=== PATIENT | female | born 1940 | race Caucasian/White ===

== ENCOUNTER 2016-08-02 14:50 | Emergency (ER) | payer MEDICARE, OTHER ==
[~2016-08-02] VITALS: Ht 142.2 cm; Wt 63.5 kg
[2016-08-02] MEDS ORDERED: HYDROCODONE/APAP 5/325MG 1 EACH TABLET ONE (15:21)
[2016-08-02] MEDS ORDERED: HYDROCODONE/APAP 5/325MG 1 EACH TABLET PO ONE (15:30)
[2016-08-02 16:41] VITALS: BP 151/75
== END 2016-08-02 16:50 | disposition home or self-care (01) ==
LOC: ER 14:51
DX: S52.91XA Unspecified fracture of right forearm, initial encounter for closed fracture (principal); S80.02XA Contusion of left knee, initial encounter; S00.31XA Abrasion of nose, initial encounter; I25.2 Old myocardial infarction; E11.9 Type 2 diabetes mellitus without complications; I10 Essential (primary) hypertension; Z95.5 Presence of coronary angioplasty implant and graft
CPT/HCPCS: 29125; 70486; 71010; 73110; 73564; 93005; 99284; A4606; Z7610

== ENCOUNTER 2017-06-09 10:27 | Emergency (ER) | payer MEDICARE, OTHER ==
[~2017-06-09] VITALS: Ht 139.7 cm; Wt 59.0 kg
[2017-06-09 10:56] VITALS: BP 116/71
[2017-06-09] MEDS ORDERED: ACETAMINOPHEN 325 MG TABLET PO ONE (12:30)
[2017-06-09] MEDS ORDERED: LIDOCAINE VISCOUS 2% UD 15 ML UDC MM ONE (12:30)
[2017-06-09] MEDS ORDERED: LIDOCAINE VISCOUS 2% UD 15 ML UDC ONE (12:37)
[2017-06-09] MEDS ORDERED: ACETAMINOPHEN 325 MG TABLET ONE (12:38)
== END 2017-06-09 12:57 | disposition home or self-care (01) ==
LOC: ER 10:30
DX: J06.9 Acute upper respiratory infection, unspecified (principal); J02.9 Acute pharyngitis, unspecified; R13.10 Dysphagia, unspecified; I10 Essential (primary) hypertension; I25.2 Old myocardial infarction; E11.9 Type 2 diabetes mellitus without complications; F17.200 Nicotine dependence, unspecified, uncomplicated; Z95.5 Presence of coronary angioplasty implant and graft
CPT/HCPCS: 99283; A4606; Z7610

== ENCOUNTER 2018-05-27 21:02 | Inpatient (IN) | payer MEDICARE, OTHER ==
[~2018-05-27] VITALS: Ht 127 cm; Wt 62.7 kg
--- NOTE | 2018-05-27 21:10 | NUR ---
PT BIB DAUGHTER C/O NECK PAIN, BACK PAIN RADIATES TO SHOULDER, L SIDE CHEST PAIN, PT IS AAOX4 [id number] SPEAKING, NOT IN RESPIRATORY DISTRESS, V/S STABLE, KEPT RESTED AND COMFORTABLE, WILL CONTINUE TO MONITOR.
--- NOTE | 2018-05-27 21:20 | NUR ---
MS. MAHRE AT [facility] FOR EVAL, LABS DRAWNED, EKG DONE.
[2018-05-27] MEDS ORDERED: IV NS 0.9% 500 ML BAG IV ONE (21:30)
[2018-05-27 21:37] LABS: BASOPHILS # (AUTO) 0.1 /CMM (0.0-0.2); BASOPHILS % (AUTO) 0.9 % (0.0-2.0); EOSINOPHILS % (AUTO) 4.9 % (0.0-6.0); HEMATOCRIT 38 % (33-45); HEMOGLOBIN 12.3 g/dL (11.5-14.8); LYMPHOCYTES # (AUTO) 2.1 /CMM (0.8-4.8); LYMPHOCYTES % (AUTO) 23.8 % (20.0-44.0); MEAN CORPUSCULAR HGB CONC 32 g/dl (31.0-36.0); MEAN CORPUSCULAR VOLUME 86 fL (82-100); MONOCYTES # (AUTO) 0.9 /CMM (0.1-1.30); MONOCYTES % (AUTO) 9.5 % (2.0-12.0); NEUTROPHILS # (AUTO) 5.5 /CMM (1.8-8.9); NEUTROPHILS % (AUTO) 60.9 % (43.0-81.0); PLATELET COUNT (AUTO) 271 /CMM (150-450); RED BLOOD CELL COUNT(AUTO) 4.47 MIL/uL (4.0-5.2)
[2018-05-27 21:48] LABS: CALCIUM, SERUM 9.3 mg/dL (8.5-10.1); CARBON DIOXIDE 32 mmol/L (21-32); CHLORIDE 102 mmol/L (98-107); CREATININE 1.1 mg/dL (0.6-1.3); GLUCOSE 206 mg/dL (74-106); POTASSIUM 4.6 mmol/L (3.5-5.1); SODIUM SERUM 141 mmol/L (136-145); UREA NITROGEN, BLOOD 36 mg/dL (7-18)
[2018-05-27 21:54] LABS: ALANINE AMINOTRANSFERASE 24 U/L (12-78); ALBUMIN 3.5 g/dL (3.4-5.0); ALKALINE PHOSPHATASE 80 U/L (46-116); ASPARTATE AMINOTRANSFERASE 17 U/L (15-37); BILIRUBIN,TOTAL 0.2 mg/dL (0.2-1.0); TOTAL PROTEIN, SERUM 7.4 g/dL (6.4-8.2)
--- NOTE | 2018-05-27 22:04 | NUR ---
TECH AT BEDSIDE FOR CHEST XRAY.
[2018-05-27] MEDS ORDERED: NITROGLYCERIN 0.4 MG/TAB BOTTLE SL ONE (22:30)
[2018-05-27] MEDS ORDERED: ASPIRIN 325 MG TABLET PO ONE (22:30)
[2018-05-27] MEDS ORDERED: ASPIRIN 325 MG TABLET ONE (22:48)
[2018-05-27] MEDS ORDERED: NITROGLYCERIN 0.4 MG/TAB BOTTLE ONE (22:48)
[2018-05-27] MEDS ORDERED: NITROGLYCERIN PACKET 1 GM PACKET ONE (23:03)
--- NOTE | 2018-05-27 23:03 | NUR ---
REPORT GIVEN TO DON LOPEZ FOR CHANTELL, PT IS AAOX4, NOT IN RESPIRATORY DISTRESS, V/S STABLE.
--- NOTE | 2018-05-27 23:10 | NUR ---
PT REC'D NITRO PASTE TO KIANNA. BP 110/70
--- NOTE | 2018-05-27 23:12 | NUR ---
REMOVED NITRO PASTE, BP LOW.
--- NOTE | 2018-05-27 23:15 | NUR ---
PT IS ASSIGNED TO [facility] RM#: [id number], DX: CHEST PAIN
[2018-05-27] MEDS ORDERED: GLYB-214 PO (23:26)
[2018-05-27] MEDS ORDERED: PROP10TA10 PO (23:26)
[2018-05-27] MEDS ORDERED: ASPI-1169 PO (23:26)
[2018-05-27] MEDS ORDERED: HYDR-3980 PO (23:26)
[2018-05-27] MEDS ORDERED: ESCI10TA PO (23:26)
[2018-05-27] MEDS ORDERED: PREG75CA PO (23:26)
[2018-05-27] MEDS ORDERED: PRAV40TA3 PO (23:26)
[2018-05-27] MEDS ORDERED: TELM1TAB6 PO (23:26)
[2018-05-27] MEDS ORDERED: TRIA15CR3 TP (23:26)
[2018-05-27] MEDS ORDERED: OXYB5TAB11 PO (23:26)
[2018-05-27] MEDS ORDERED: ONDA4TAB11 PO (23:26)
[2018-05-27] MEDS ORDERED: CLOT15CR63 TP (23:26)
--- NOTE | 2018-05-27 23:37 | NUR ---
CALLING REPORT TO TELE NURSE.
--- NOTE | 2018-05-27 23:58 | NUR ---
HAND CARVER ADMITTING NOTES RECEIVED PATIENT FROM ER VIA GURNEY , AWAKE ALERT AND ORIENTED X 4, TANZANIAN SPEAKING WITH LITTLE SLOVENIAN. FAMILY AT BEDSIDE, ADMITTED FOR CHEST PAIN DENIES ANY PAIN AT THIS TIME, RESPIRATIONS EVEN AND UNLABORED WITH EQUAL RISE AND FALL OF CHEST.PLACED ON MACHINE JOINER CEMENTER SR 80 REGULAR,BELONGINGS LIST DONE, FAMILY TOOK VALUBLES HOME, IV SITE TO LEFT AC INTACT AND PATENT #20 G NO INFILTRATION NO REDNESS, BODY ASSESSMENT DONE SKIN IS INTACT, ORIENTED TO STAFF AND CALL LIGHT AND KEPT WITHIN REACH LOW BED AND LOCKED, BED ALARM IN PLACE FOR SAFETY,ALL NEEDS ATTENDED AT THIS TIME TOILETING OFFERED NOTED URINE CLEAR YELLOW, WILL CARRY OUT MD ORDERS, PATIENT REMAINS COMFORTABLE AT THIS TIME, WATCHING TV.
[2018-05-28] VITALS (8 sets, daily range): BP systolic 112–164; BP diastolic 47–80
[2018-05-28] MEDS ORDERED: Z GUARD REMEDY 2 OZ OINT TP PRN
[2018-05-28] MEDS ORDERED: ONDANSETRON HCL/PF 4 MG/2 ML VIAL IVP PRN
[2018-05-28] MEDS ORDERED: ACETAMINOPHEN 325 MG TABLET PO PRN
[2018-05-28] MEDS ORDERED: MAGNESIUM HYDROXIDE 30 ML UDC PO PRN
[2018-05-28] MEDS ORDERED: ZOLPIDEM TARTRATE 5 MG TABLET PO PRN
[2018-05-28] MEDS ORDERED: NITROGLYCERIN PACKET 1 GM PACKET TOP ONE
[2018-05-28] MEDS ORDERED: MAG HYDROX/AL HYDROX/SIMETH 30 ML UDC PO PRN
[2018-05-28] MEDS: IV NS 0.9% 1,000 ML IV PRN (00:25)
[2018-05-28] MEDS: HYDROCODONE/APAP 5/325MG 1 EACH TABLET PO PRN ×3 (03:21→22:12)
--- NOTE | 2018-05-28 03:25 | NUR ---
DON PIEDRA NOTES PATIENT COMPLAINT OF HEADACHE 11/17 REQUESTING FOR PAIN MEDICATION NORCO OFFERED PATIENT AGREED TO NORCO V.S TAKEN B/ NOTED 135/63,72,18,97%RA, NORCO 5MG PRN ORDERED GIVEN WILL CONTINUE TO MONITOR FOR EFFECTIVENESS Addendum: 05/28/18 at 0625 by FANG LEI RN CLARIFICATION OF NOTE DON CASTAÑEDA
--- NOTE | 2018-05-28 06:26 | NUR ---
RN CLOSING TELE NOTES PATIENT IS IN BED SLEEPING BUT EASILY AROUSABLE, RESPIRATIONS EVEN AND UNLABORED WITH EQUAL RISE AND FALL OF CHEST, DENIES ANY PAIN OR DISCOMFORT AT THIS TIME, NORCO WAS EFFECTIVE PATIENT SLEPT WELL THROUGH THE NIGHT, ON RUFFLER SR REGULAR 71. LEFT AC #20 G INTACT AND PATENT, IVF RUNNING ORDERED, FLUIDS AND TOILETING OFFERED, SAFETY PRECAUTIONS IN PLACE, LOW BED AND LOCKED, BED ALARM IN PLACE, ALL NEEDS ATTENDED PATIENT REMAINS COMFORTABLE WILL CONTINUE TO MONITOR AND ENDORSE TO NEXT SHIFT. Addendum: 05/28/18 at 0647 by FANG LEI RN MAXIMINO STOVER MADE AWARE OF MED RECON FOR HOME MEDS WILL CONTINUE TO F/U AND ENDORSE TO NEXT SHIFT
[2018-05-28 07:19] LABS: BASOPHILS # (AUTO) 0.1 /CMM (0.0-0.2); EOSINOPHILS % (AUTO) 5.9 % (0.0-6.0); HEMATOCRIT 37 % (33-45); HEMOGLOBIN 11.6 g/dL (11.5-14.8); LYMPHOCYTES # (AUTO) 2.6 /CMM (0.8-4.8); LYMPHOCYTES % (AUTO) 30.2 % (20.0-44.0); MEAN CORPUSCULAR HGB CONC 32 g/dl (31.0-36.0); MEAN CORPUSCULAR VOLUME 85 fL (82-100); MONOCYTES # (AUTO) 1.1 /CMM (0.1-1.30); MONOCYTES % (AUTO) 13.3 % (2.0-12.0); NEUTROPHILS # (AUTO) 4.2 /CMM (1.8-8.9); NEUTROPHILS % (AUTO) 49.6 % (43.0-81.0); PLATELET COUNT (AUTO) 222 /CMM (150-450); RED BLOOD CELL COUNT(AUTO) 4.31 MIL/uL (4.0-5.2); WHITE BLOOD COUNT (AUTO) 8.6 K/uL (4.3-11.0)
[2018-05-28 07:34] LABS: CALCIUM, SERUM 8.9 mg/dL (8.5-10.1); CARBON DIOXIDE 27 mmol/L (21-32); CHLORIDE 107 mmol/L (98-107); CREATININE 0.9 mg/dL (0.6-1.3); GLUCOSE 86 mg/dL (74-106); MAGNESIUM 1.8 mg/dL (1.8-2.4); PHOSPHORUS 3.7 mg/dL (2.5-4.9); POTASSIUM 4.3 mmol/L (3.5-5.1); SODIUM SERUM 144 mmol/L (136-145); UREA NITROGEN, BLOOD 30 mg/dL (7-18)
[2018-05-28 08:00] LABS: CHOLESTEROL 220 mg/dL (<200); HDL CHOLESTEROL 35 mg/dL (40-60); LDL 153 mg/dL (0-99); TRIGLYCERIDES 185 mg/dL (30-150)
--- NOTE | 2018-05-28 08:00 | NUR ---
RECEIVED PT. IN AM ALERT AND ORIENTEDX4.GETTING OIL EXPELLER FREQ. FOR PT.
[2018-05-28] MEDS ORDERED: ONDANSETRON 4 MG TAB.RAPDIS PO SCH (08:30)
[2018-05-28 08:53] LABS: THYROID STIMULATING HORMONE 1.257 uIU/mL (0.358-3.74)
[2018-05-28] MEDS ORDERED: glyBURIDE/METFORMIN 5-500 MG 1 EACH TABLET PO SCH (09:00)
--- NOTE | 2018-05-28 10:00 | NUR ---
PT. NPO IN AM FOR NUCLEAR STRESS TEST.
[2018-05-28] MEDS: CLOTRIMAZOLE 1% 15 GM TUBE TP SCH (11:59)
[2018-05-28] MEDS: TRIAMCINOLONE ACETONIDE 0.025% 15 GM TUBE TP SCH (12:00)
[2018-05-28] MEDS ORDERED: METFORMIN 500 MG TABLET PO SCH (12:00)
[2018-05-28] MEDS ORDERED: glyBURIDE 5 MG TABLET PO SCH (12:00)
[2018-05-28] MEDS ORDERED: REGADENOSON 0.4 MG/5 ML DISP.SYRIN IVP ONE (12:23)
[2018-05-28] MEDS: ASPIRIN 81 MG TAB.CHEW PO SCH (13:06)
[2018-05-28] MEDS: PROPRANOLOL HCL 10 MG TABLET PO SCH ×2 (13:07→19:02)
[2018-05-28] MEDS: PREGABALIN 25 MG CAPSULE PO SCH (13:08)
[2018-05-28] MEDS: ESCITALOPRAM OXALATE (10 MG) 10 MG TABLET PO SCH (13:08)
[2018-05-28] MEDS: OXYBUTYNIN CHLORIDE 5 MG TABLET PO SCH ×2 (13:10→17:51)
[2018-05-28] MEDS ORDERED: INSULIN REGULAR, HUMAN 100 UNIT/ML 3 ML VIAL SQ PRN (14:00)
[2018-05-28] MEDS ORDERED: DEXTROSE 50%-WATER 50 ML DISP.SYRIN IV PRN (14:00)
[2018-05-28] MEDS: BLOOD SUGAR DIAGNOSTIC 1 EACH STRIP IN SCH ×3 (14:24→22:12)
--- NOTE | 2018-05-28 14:30 | NUR ---
HAD ECHO AND STRESS TEST.THAD FUENTES STAFF EDITOR IN TO SEE PT. SPOUSE HERE ALL DAY.
[2018-05-28] MEDS: LOSARTAN POTASSIUM 50 MG TABLET PO SCH (16:49)
--- NOTE | 2018-05-28 18:30 | NUR ---
DTR. CALLING FREQ.PT. REFUSING INSULIN ,EATING SMALL AMTS.
--- NOTE | 2018-05-28 19:05 | NUR ---
CHIEF DISPATCHER SERVICE ADMITTING NOTES RECEIVED PATIENT AWAKE ALERT AND ORIENTED X 4, SLOVAK SPEAKING WITH LITTLE NIGERIAN. DENIES CHEST PAIN DENIES PAIN TO THROAT DENIES ANY PAIN AT THIS TIME, RESPIRATIONS EVEN AND UNLABORED WITH EQUAL RISE AND FALL OF CHEST.ON [place] CLASSIFIER TENDER SR 77 REGULAR, IV SITE TO LEFT AC INTACT AND PATENT #20 G NO INFILTRATION NO REDNESS IVF RUNNING ORDERED, SKIN IS INTACT, ORIENTED TO STAFF AND CALL LIGHT AND KEPT WITHIN REACH LOW BED AND LOCKED, BED ALARM IN PLACE FOR SAFETY,ALL NEEDS ATTENDED AT THIS TIME TOILETING OFFERED NOTED URINE CLEAR YELLOW, , PATIENT REMAINS COMFORTABLE AT THIS TIME, WATCHING TV. WILL CONTINUE TO MONITOR. Addendum: 05/29/18 at 0139 by FANG LEI RN CLARIFICATION CHIEF DISPATCHER SERVICE OPENING NOTES
[2018-05-28] MEDS ORDERED: ATORVASTATIN 10 MG TABLET PO SCH (22:00)
--- NOTE | 2018-05-28 22:00 | NUR ---
ASSISTANT MEDIA PLANNER NOTES PATIENT BS 176 REFUSED INSULIN AT THIS TIME.
--- NOTE | 2018-05-28 22:12 | NUR ---
FRYLINE ATTENDANT NOTES PATIENT COMPLAINT OF PAIN TO BACK 02/17 REQUESTING FOR NORCO, NORCO 5MG GIVEN ORDERED,WILL CONTINUE TO MONITOR FOR EFFECTIVENESS VS WNL. Addendum: 05/29/18 at 0141 by FANG LEI RN CLARIFICATION 5/325MG GIVEN ORDERED
[2018-05-29] VITALS: BP 134/72
[2018-05-29 00:36] VITALS: BP 134/72
[2018-05-29] MEDS: HYDROCODONE/APAP 5/325MG 1 EACH TABLET PO PRN (03:10)
--- NOTE | 2018-05-29 03:12 | NUR ---
SUGAR CONTROLLER NOTES PATIENT COMPLAIN OF PAIN TO BACK 02/17 REQUESTING FOR NORCO 5/325MH GIVEN ORDERED PRN VITAL SIGNS WNL, WILL CONTINUE TO MONITOR FOR EFFECTIVENESS.
[2018-05-29] MEDS: IV NS 0.9% 1,000 ML IV PRN (03:24)
[2018-05-29 04:00] VITALS: BP 135/68
[2018-05-29 04:28] VITALS: BP 135/68
[2018-05-29] MEDS: BLOOD SUGAR DIAGNOSTIC 1 EACH STRIP IN SCH (06:01)
--- NOTE | 2018-05-29 06:46 | NUR ---
RN MS CLOSING NOTES PATIENT IN BED SLEEPING BUT EASILY AROUSABLE, RESPIRATIONS EVEN AND UNLABORED WITH EQUAL RISE AND FALL OF CHEST,DENIES ANY PAIN OR DISCOMFORT, ON SAWDUST MACHINE OPERATOR SR 77, DENIES CHEST PAIN AT THIS TIME, SNACKS AND FLUID PROVIDED, TOILETING OFFERED, IV SITE TO LEFT AC #20G INTACT AND PATENT IVF RUNNING ORDERED, PAIN MEDICATION WHEN GIVEN NOTED EFFECTIVE, SAFETY PRECAUTIONS IN PLACE, LOW BED AND LOCKED , BED ALARM IN PLACE, NO CHANGE THROUGHOUT NIGHT, ALL NEEDS ATTENDED PATIENT REMAINS COMFORTABLE WILL CONTINUE TO MONITOR AND ENDORSE TO NEXT SHIFT.
--- NOTE | 2018-05-29 07:06 | NUR ---
ELECTRICAL CAD DESIGNER NOTES PATIENT IN BED ALERT ORIENTED X 3. NO ACUTE DISTRESS NOTED. BREATHING UNLABORED. NO SOB NOTED. DENIED ANY PAIN. IV ACCESS PATENT AND INTACT, NO REDNESS OR SWELLING NOTED. SAFETY MEASURES IN PLACE. CALL LIGHT WITHIN REACH, WILL CONTINUE TO MONITOR ACCORDINGLY.
[2018-05-29 08:00] VITALS: BP 160/75
[2018-05-29] MEDS ORDERED: HYDROCHLOROTHIAZIDE 25 MG TABLET PO SCH (09:00)
[2018-05-29] MEDS: ESCITALOPRAM OXALATE (10 MG) 10 MG TABLET PO SCH (09:01)
[2018-05-29] MEDS: PROPRANOLOL HCL 10 MG TABLET PO SCH (09:02)
[2018-05-29] MEDS: PREGABALIN 25 MG CAPSULE PO SCH (09:02)
[2018-05-29] MEDS: ASPIRIN 81 MG TAB.CHEW PO SCH (09:02)
[2018-05-29 09:03] VITALS: BP 154/74
[2018-05-29] MEDS: LOSARTAN POTASSIUM 50 MG TABLET PO SCH (09:03)
[2018-05-29] MEDS: OXYBUTYNIN CHLORIDE 5 MG TABLET PO SCH (09:03)
[2018-05-29] MEDS: TRIAMCINOLONE ACETONIDE 0.025% 15 GM TUBE TP SCH (10:04)
[2018-05-29] MEDS: CLOTRIMAZOLE 1% 15 GM TUBE TP SCH (10:04)
--- NOTE | 2018-05-29 11:36 | NUR ---
TELE EN NOTES RECEIVED NEW ORDERS FROM DR THAD FUENTES NOTED AND CARRIED OUT.
--- NOTE | 2018-05-29 11:40 | NUR ---
CHILD LIFE SPECIALIST NOTES PATIENT DISCHARGE HOME WITH WITH STABLE VITAL SIGNS, NO ACUTE DISTRESS NOTED. DENIED ANY PAIN AT THIS TIME. PATIENT REFUSED TO WAIT FOR DISCHARGE PAPERS AND SIGN,PATIENT RUSHING TO GO HOME. INSTRUCTIONS GIVEN TO FOLLOW UP WITH PCP IN 1 WEEK. CONTINUE HOME MEDICATIONS PRESCRIBED. IV ACCESS REMOVED, NO BLEEDING , NO SWELLING, NO REDNESS NOTED. ALL BELONGINGS ACCOUNTED FOR. SKIN IS INTACT. WHEELED TO THE LOBBY, ASSISTED TO A PRIVATE CAR IN STABLE CONDITION.
== END 2018-05-29 11:45 | disposition home or self-care (01) | DRG 206 ==
LOC: ER 21:13 → MED 23:32 → TELE 05-28 02:32
PROVIDERS: ADMIT Internal Medicine; ATTEND Nurse Practitioner Acute Care
DX: M94.0 Chondrocostal junction syndrome [Tietze] (principal); I25.10 Atherosclerotic heart disease of native coronary artery without angina pectoris; I10 Essential (primary) hypertension; E78.5 Hyperlipidemia, unspecified; E11.9 Type 2 diabetes mellitus without complications; Z95.5 Presence of coronary angioplasty implant and graft; Z87.891 Personal history of nicotine dependence; I25.2 Old myocardial infarction
CPT/HCPCS: 36415; 71045-TC; 80048-TC; 80061-TC; 80076-TC; 82962-TC; 83735-TC; 84100-TC; 84439-TC; 84443-TC; 84484-TC; 85025-TC; 85730-TC; 87081-TC; 93307-TC; A4606; A9502; G0378; J1815; J2785; J7030; J7040; Z7610